=== PATIENT | female | born 1975 | race African-American/Black ===

== ENCOUNTER 2022-04-01 22:23 | Emergency (ER) | payer SELFPAY ==
[2022-04-01] MEDS ORDERED: Lidocaine 1%/Epinephrine 1:100K 10 ML VIAL ONE (22:42)
== END 2022-04-01 23:33 | disposition home or self-care (01) ==
LOC: MADERS 22:23 → EEVIPCON 22:23 → MADERS 23:33
DX: S50.852A Superficial foreign body of left forearm, initial encounter (principal); F17.210 Nicotine dependence, cigarettes, uncomplicated; W26.8XXA Contact with other sharp object(s), not elsewhere classified, initial encounter
CPT/HCPCS: 10120